=== PATIENT | female | born 1990 | race Hispanic/Latino ===

== ENCOUNTER 2023-01-04 23:34 | Observation (INO) | payer OTHER ==
[~2023-01-04] VITALS: Ht 154.9 cm; Wt 72.6 kg
[2023-01-05 00:37] LABS: BASOPHILS # (AUTO) 0.1 (0.0-0.1); BASOPHILS % 0.9 % (0.0-1.0); EOSINOPHILS # (AUTO) 0.1 (0.0-0.4); HEMATOCRIT 24.5 % (34.2-44.1); HEMOGLOBIN 6.1 g/dL (12.0-16.0); LYMPHOCYTES # (AUTO) 1.9 (1.0-3.2); LYMPHOCYTES % 19.3 % (18.0-39.1); MEAN CORPUSCULAR HEMOGLOBIN 15.9 pg (28-32); MEAN CORPUSCULAR HGB CONC 24.9 g/dL (31-35); MONOCYTES # (AUTO) 0.5 (0.2-0.8); MONOCYTES % 5.2 % (4.4-11.3); NEUTROPHILS # (AUTO) 7.1 (2.1-6.9); NEUTROPHILS % 71.6 % (38.7-80.0); PLATELET COUNT 536 x10e3/uL (140-360); RED BLOOD COUNT 3.83 x10e6/uL (3.6-5.1)
[2023-01-05 00:51] LABS: ANION GAP 13.7 mmol/L (8-16); CALCIUM 8.9 mg/dL (8.4-10.2); CREATININE, SERUM 0.76 mg/dL (0.57-1.11); POTASSIUM 3.7 mmol/L (3.5-5.1)
[2023-01-05] MEDS ORDERED: SODIUM CHLORIDE FLUSH 10 ML SYR INJ PRN (01:15)
[2023-01-05] MEDS ORDERED: SODIUM CHLORIDE 0.9% 250ML 250 ML IV ONE (01:15)
[2023-01-05] MEDS ORDERED: ACETAMINOPHEN 325 MG TAB ONE (01:58)
[2023-01-05] MEDS ORDERED: ACETAMINOPHEN 325 MG TAB PO ONE (02:15)
[2023-01-05 08:19] VITALS: BP 119/86; PULSE 91; RESP 18; TEMP 98.7; O2SAT 99
[2023-01-05] MEDS ORDERED: SODIUM CHLORIDE 0.9% 250ML 250 ML ONE (09:04)
[2023-01-05 10:00] VITALS: BP 119/86; PULSE 91; RESP 18; TEMP 98.7; O2SAT 99
[2023-01-05] MEDS ORDERED: ACETAMINOPHEN 325 MG TAB PO PRN (11:00)
[2023-01-05 11:28] VITALS: BP 119/86; PULSE 92; RESP 18; TEMP 98.3; O2SAT 100
[2023-01-05] MEDS ORDERED: FUROSEMIDE INJ 10 MG/ML 2 ML VIAL IV ONE ×2 (12:00→14:30)
[2023-01-05 12:37] LABS: % IRON SATURATION 4 % (15-50); IRON 20 ug/dL (50-170); TOTAL IRON BINDING CAPACITY 511 ug/dL (261-478); TRANSFERRIN 365 mg/dL (180-382)
[2023-01-05 13:02] VITALS: BP 115/85; PULSE 93; RESP 17; TEMP 98.8; O2SAT 99
[2023-01-05 16:23] LABS: BASOPHILS # (AUTO) 0.1 (0.0-0.1); BASOPHILS % 0.7 % (0.0-1.0); EOSINOPHILS # (AUTO) 0.1 (0.0-0.4); HEMATOCRIT 35.8 % (34.2-44.1); HEMOGLOBIN 10.4 g/dL (12.0-16.0); LYMPHOCYTES # (AUTO) 2.1 (1.0-3.2); LYMPHOCYTES % 19.4 % (18.0-39.1); MEAN CORPUSCULAR HEMOGLOBIN 20.5 pg (28-32); MEAN CORPUSCULAR HGB CONC 29.1 g/dL (31-35); MEAN CORPUSCULAR VOLUME 70.6 fL (81-99); MONOCYTES # (AUTO) 0.5 (0.2-0.8); MONOCYTES % 4.6 % (4.4-11.3); NEUTROPHILS # (AUTO) 7.7 (2.1-6.9); NEUTROPHILS % 71.8 % (38.7-80.0); PLATELET COUNT 467 x10e3/uL (140-360); RED BLOOD COUNT 5.07 x10e6/uL (3.6-5.1); RED CELL DISTRIBUTION WIDTH 29.7 % (11.7-14.4)
[2023-01-05 16:39] VITALS: BP 119/92; PULSE 84; RESP 19; TEMP 98.8; O2SAT 100
[2023-01-05] MEDS ORDERED: IRON SUCROSE 100 MG in SODIUM CHLORIDE 0.9% 100 ML IV SCH (18:00)
== END 2023-01-05 17:45 | disposition home or self-care (01) ==
LOC: ER 23:36 → ERHOLD 01-05 01:04 → MED/SURG 01-05 07:35
PROVIDERS: ADMIT Internal Medicine; ATTEND Internal Medicine
DX: D50.0 Iron deficiency anemia secondary to blood loss (chronic) (principal); G43.909 Migraine, unspecified, not intractable, without status migrainosus; Z20.822 Contact with and (suspected) exposure to COVID-19; Z88.8 Allergy status to other drugs, medicaments and biological substances
CPT/HCPCS: 0223U; 36415; 36430; 80048; 83540; 84466; 84702; 85025; 86850; 86900; 86920; 93005; 99284; G0378; J1756; J1940; J7050 ×2; P9016

== ENCOUNTER 2023-01-07 21:23 | Emergency (ER) | payer OTHER ==
[~2023-01-07] VITALS: Ht 154.9 cm; Wt 72.6 kg
[2023-01-07] MEDS ORDERED: SODIUM CHLORIDE 0.9% 1000ML 1,000 ML IV STA (22:40)
[2023-01-07 22:52] LABS: BASOPHILS # (AUTO) 0.1 (0.0-0.1); BASOPHILS % 0.5 % (0.0-1.0); EOSINOPHILS # (AUTO) 0.2 (0.0-0.4); EOSINOPHILS % 1.7 % (0.0-6.0); HEMATOCRIT 35.4 % (34.2-44.1); HEMOGLOBIN 10.1 g/dL (12.0-16.0); LYMPHOCYTES # (AUTO) 2.9 (1.0-3.2); LYMPHOCYTES % 30.4 % (18.0-39.1); MEAN CORPUSCULAR HEMOGLOBIN 20.6 pg (28-32); MEAN CORPUSCULAR HGB CONC 28.5 g/dL (31-35); MEAN CORPUSCULAR VOLUME 72.2 fL (81-99); MONOCYTES # (AUTO) 0.5 (0.2-0.8); MONOCYTES % 4.8 % (4.4-11.3); NEUTROPHILS # (AUTO) 5.9 (2.1-6.9); NEUTROPHILS % 61.5 % (38.7-80.0); PLATELET COUNT 437 x10e3/uL (140-360)
[2023-01-07 23:04] LABS: ALBUMIN 3.8 g/dL (3.5-5.0); ANION GAP 15.6 mmol/L (8-16); CALCIUM 8.9 mg/dL (8.4-10.2); CREATININE, SERUM 0.8 mg/dL (0.57-1.11); POTASSIUM 3.6 mmol/L (3.5-5.1)
[2023-01-07 23:16] LABS: AMPHETAMINES SCREEN,URINE NEGATIVE (NEGATIVE); BENZODIAZEPINES SCREEN,URINE NEGATIVE (NEGATIVE); PHENCYCLIDINE SCREEN,URINE NEGATIVE (NEGATIVE)
[2023-01-08] MEDS ORDERED: IOPAMIDOL 370 MG/ML 100 ML INFUS..BTL INJ ONE (01:16)
[2023-01-08] MEDS ORDERED: KETOROLAC TROMETHAMINE 30 MG/ML VIAL IV STA (01:21)
[2023-01-08 02:00] VITALS: BP 126/99; PULSE 96; RESP 18; TEMP 98.3; O2SAT 100
== END 2023-01-08 02:10 | disposition home or self-care (01) ==
LOC: ER 21:32
DX: R07.89 Other chest pain (principal); R00.0 Tachycardia, unspecified; D64.9 Anemia, unspecified; R79.1 Abnormal coagulation profile
CPT/HCPCS: 36415; 71045; 71260; 80053; 80307; 81025; 82550; 82553; 83690; 83880; 84484; 85025; 85379; 86850; 86900; 93005; 99284; C9113; J1885; J7030; Q9967